=== PATIENT | female | born 1985 | race Caucasian/White ===

== ENCOUNTER 2016-11-12 06:13 | Emergency (ER) | payer BC, OTHER ==
[~2016-11-12] VITALS: Ht 154.9 cm; Wt 61.2 kg
[~2016-11-12 06:13] MED LIST: IBUPROFEN 200200 M1; IBUPROFEN 200200 M1 PO; LEXAPRO5 MG PO; NASA MIST SALIN75 ML; NASACORT10.8 ML NASAL; NORCO 5-325 TA1 EACH PO; NORFLEX100 MG PO; PAXIL10 MG PO; PEPCID40 MG PO; PERCOCET 5-3251 EACH PO; XANAX 0.25 MG0.25 MG PO; ZOFRAN ODT4 MG PO; ZYRTEC10 M5 PO
[2016-11-12 06:34] LABS: ABSOLUTE NEUTROPHILS 6.8 thou/uL (1.4-8.2); BASOPHILS 0.4 % (0.0-2.0); EOSINOPHILS 1.6 % (0.0-3.0); HEMATOCRIT 39.8 % (37.0-47.0); HEMOGLOBIN 13.6 gm/dL (12.0-15.0); LYMPHOCYTES 24.1 % (24.0-44.0); MCH 28.6 pg (26.0-34.0); MCHC 34.2 g/dL (28.0-37.0); MCV 83.9 fL (80.0-100.0); MONOCYTES 7.3 % (1.0-8.0); PLATELET COUNT 206 thou/uL (150-400); POLYS 66.6 % (36.0-66.0); RBC 4.74 mil/uL (4.20-5.00); RDW 13.5 % (10.5-14.5); WBC 10.3 thou/uL (4.0-11.0)
[2016-11-12 06:36] LABS: MANUAL DIFF NO
[2016-11-12 06:39] LABS: CALCIUM 9.4 mg/dL (8.5-10.1); CREATININE 0.6 mg/dL (0.6-1.0); POTASSIUM 3.4 mmol/L (3.5-5.1)
[2016-11-12 06:51] LABS: URINE BLOOD NEGATIVE (Negative); URINE GLUCOSE-RANDOM* NEGATIVE (Negative); URINE KETONES 3+ (Negative); URINE LEUKOCYTES-REFLEX NEGATIVE (Negative); URINE PROTEIN (DIPSTICK) TRACE (Negative); URINE SPECIFIC GRAVITY >= 1.030 (1.003-1.035)
[2016-11-12 07:00] LABS: ICTOTEST (BILI CONFIRMATORY) Negative (Negative); URINE BILIRUBIN NEGATIVE (Negative)
[2016-11-12 07:01] LABS: URINE COLOR YELLOW
== END 2016-11-12 08:36 | disposition home or self-care (01) ==
LOC: ER 06:13
PROVIDERS: Emergency Medicine
DX: O21.8 Other vomiting complicating pregnancy (principal); Z3A.12 12 weeks gestation of pregnancy; Z98.890 Other specified postprocedural states; F41.9 Anxiety disorder, unspecified; K21.9 Gastro-esophageal reflux disease without esophagitis; Z88.0 Allergy status to penicillin; Z88.2 Allergy status to sulfonamides; F17.210 Nicotine dependence, cigarettes, uncomplicated

== ENCOUNTER 2016-12-04 13:09 | Emergency (ER) | payer BC, OTHER ==
[~2016-12-04] VITALS: Ht 154.9 cm; Wt 64.9 kg
[2016-12-04 14:03] LABS: URINE BLOOD 3+ (Negative); URINE COLOR YELLOW; URINE GLUCOSE-RANDOM* NEGATIVE (Negative); URINE KETONES 2+ (Negative); URINE NITRITE NEGATIVE (Negative); URINE PROTEIN (DIPSTICK) 1+ (Negative); URINE SPECIFIC GRAVITY 1.025 (1.003-1.035)
[2016-12-04 14:07] LABS: ICTOTEST (BILI CONFIRMATORY) Negative (Negative); URINE BILIRUBIN NEGATIVE (Negative)
[2016-12-04 14:15] LABS: SQUAMOUS >10 Many /LPF (0-3)
[2016-12-04 14:16] LABS: CASTS None Seen /LPF (None Seen); CRYSTALS None Seen /LPF (None Seen); URINE RBC >20 Many /HPF (0-2)
[2016-12-04 14:17] LABS: URINE WBC 6-15 Few /HPF (0-5)
[2016-12-04 14:31] LABS: HEMATOCRIT 38.9 % (37.0-47.0); MCH 28.7 pg (26.0-34.0); MCHC 33.4 g/dL (28.0-37.0); MCV 85.8 fL (80.0-100.0); RBC 4.54 mil/uL (4.20-5.00)
[2016-12-04 14:38] LABS: CALCIUM 9.1 mg/dL (8.5-10.1); CREATININE 0.5 mg/dL (0.6-1.0)
[2016-12-04 14:45] LABS: ALBUMIN 3.2 g/dL (3.4-5.0); TOTAL BILIRUBIN 0.5 mg/dL (<0.1-1.0); TOTAL PROTEIN 6.4 g/dL (6.4-8.2)
[2016-12-04] MEDS ORDERED: REGLAN 5 MG TAB5 MG PO (16:03)
[2016-12-04] MEDS ORDERED: KEFLEX500 MG PO (16:03)
== END 2016-12-04 16:15 | disposition home or self-care (01) ==
LOC: ER 13:09
PROVIDERS: Physician Assistant
DX: O21.0 Mild hyperemesis gravidarum (principal); O23.42 Unspecified infection of urinary tract in pregnancy, second trimester; F41.9 Anxiety disorder, unspecified; F15.10 Other stimulant abuse, uncomplicated; K21.9 Gastro-esophageal reflux disease without esophagitis; Z3A.15 15 weeks gestation of pregnancy; Z90.89 Acquired absence of other organs; Z88.0 Allergy status to penicillin; Z88.2 Allergy status to sulfonamides

== ENCOUNTER 2019-03-06 14:35 | Emergency (ER) | payer BC, OTHER ==
[~2019-03-06] VITALS: Ht 154.9 cm; Wt 70.3 kg
[~2019-03-06 14:35] MED LIST changes: +KEFLEX500 MG PO; +REGLAN 5 MG TAB5 MG PO
[2019-03-06] MEDS ORDERED: ZOLOFT50 MG PO (15:42)
[2019-03-06 17:35] VITALS: BP 108/70
== END 2019-03-06 17:35 | disposition home or self-care (01) ==
LOC: ER 14:35
DX: S63.612A Unspecified sprain of right middle finger, initial encounter (principal); K21.9 Gastro-esophageal reflux disease without esophagitis; F41.9 Anxiety disorder, unspecified; Z98.890 Other specified postprocedural states; Z88.0 Allergy status to penicillin; Z88.2 Allergy status to sulfonamides; Z90.89 Acquired absence of other organs; X50.0XXA Overexertion from strenuous movement or load, initial encounter; Y92.89 Other specified places as the place of occurrence of the external cause; Y93.89 Activity, other specified; Y99.8 Other external cause status

== ENCOUNTER → 2020-06-21 | Outpatient (CLI) | payer OTHER ==
[~2020-06-21] MED LIST changes: +ZOLOFT50 MG PO
== END ==
LOC: RAD 09:31
PROVIDERS: ATTEND Nurse Practitioner
DX: S09.93XA Unspecified injury of face, initial encounter (principal); X58.XXXA Exposure to other specified factors, initial encounter

== ENCOUNTER → 2021-04-08 | Outpatient (CLI) | payer OTHER | LOC: RAD 09:45 | PROVIDERS: ATTEND Family Medicine | DX: M79.671 Pain in right foot (principal) ==